=== PATIENT | male | born 1960 | race Caucasian/White ===

== ENCOUNTER 2023-04-07 14:28 | Day surgery (SDC) | payer BC ==
[2023-04-07] VITALS (38 sets, daily range): BP systolic 84–162; BP diastolic 49–101; PULSE 59–110; RESP 8–22; TEMP 97.3–97.5; O2SAT 95–100
[~2023-04-07] VITALS: Ht 167.6 cm; Wt 74.0 kg
--- NOTE | 2023-04-07 14:12 | NUR ---
PT ADMITTED FROM [facility] VIA AMBULANCE ON VENT. PT W/TRACH AND UNABLE TO ANSWER QUESTIONS, H&P FROM [facility] W/ VERY LITTLE INFORMATION AND VERY LITTLE HISTORY, PTS WAS ONLY ABLE TO ANSWER A FEW QUESTIONS. Addendum: 04/07/23 at 1816 by Qian Casas RN Amended: Links added.
[~2023-04-07 14:28] MED LIST: ATR0.5NEB NEB; CLON1PAT14 TOP; FAMO20TA8 GT; GABA-530 GT; GABA300S3 GT; HYDR-3965 GT; HYDR-3965 PO; INSU100I75 SQ; INSU100V49 SQ; IPRA3AMP31 NEB; LORA-269 PO; LORA2VIA30 IVP; MELA2.5T16 GT; METH-348 GT; METH20CP12 GT; METO100T14 GT; NYST15CR36 TOP; OLAN2.5T3 GT; OLAN5TAB75 GT; REGLAN IV; [UNRECOGNIZED DRUG - CODE] SQ; hydrALAZINE 20mg/ml inj. IV PRN; labetalol 20mg/4ml (5mg/ml) syringe IV PRN; morphine 2 MG/ML inj. syringe IV PRN; morphine 4 MG/ML inj SYRINge IV PRN; ondansetron/PF 4mg/2ml inj IV PRN; ringers solution, lacted 1,000 ML IV SCH
[2023-04-07] MEDS ORDERED: fentaNYL/PF 50MCG/1 ML 2ML syringe ONE (14:30)
[2023-04-07] MEDS ORDERED: MIDAZolam 1 MG/ML 5ML VIAL ONE (14:30)
[2023-04-07] MEDS ORDERED: rocuronium 10mg/ml inj IV ONE (14:34)
[2023-04-07] MEDS ORDERED: sevoflurane 250ml liquid IH ONE (14:39)
[2023-04-07] MEDS ORDERED: PHENYLephrine 10mg/ml 5ml injection IV ONE (14:39)
[2023-04-07] MEDS ORDERED: ondansetron/PF 4mg/2ml inj ONE (14:50)
[2023-04-07] MEDS ORDERED: dexamethasone sod phosphate 4mg/ml inj. ONE (14:50)
--- NOTE | 2023-04-07 15:08 | NUR ---
Received from OR via [facility], accompanied by Anesthesiologist DR KENDRICK and report given by Anesthesiologist AND PLAYERS CLUB REPRESENTATIVE. PT SEDATED ON VENT, NO S/S OF DISTRESS/DISCOMFORT NOTED. PEG TUBE PLACEMENT W/NO DRSG OR DRAINAGE. Addendum: 04/07/23 at 1607 by Qian Casas RN Amended: Links added.
--- NOTE | 2023-04-07 18:40 | NUR ---
PT REPOSITIONED AFTER MORPHINE GIVEN APPEARS MUCH MORE COMFORTABLE, CHAIM CARE PROVIDED, SCROTAL AREA AND INNER THIGHS, SACRUM EXCORIATED. AWAITING [facility] TO TAKE PT BACK TO [facility]. Addendum: 04/07/23 at 1843 by Qian Casas RN Amended: Links added.
--- NOTE | 2023-04-07 19:43 | NUR ---
[facility] HERE, PT TRANSFERRED TO [facility], RT HERE FROM [facility] TO ASSIST W/TRANSFER. PT D/CD TO [facility] VIA GURNEY/AMBULANCE. REPORT WAS CALLED TO SAM. Addendum: 04/07/23 at 1957 by Qian Casas RN Amended: Links added.
[2023-04-08] MEDS ORDERED: famotidine 20mg tablet PO ONE (05:30)
[2023-04-12] MEDS ORDERED: ringers solution, lacted 1,000 ML IV SCH (05:00)
[2023-04-12] MEDS ORDERED: albuterol 2.5 MG/3 ML nebule NEB ONE (05:30)
[2023-04-12] MEDS ORDERED: DOCUMENT DATE & TIME OF BETA-BLOCKER PO ONE (05:30)
== END 2023-04-07 19:43 ==
LOC: OR 14:28
PROVIDERS: ATTEND Internal Medicine Gastroenterology
DX: R13.10 Dysphagia, unspecified (principal); I10 Essential (primary) hypertension; E11.9 Type 2 diabetes mellitus without complications; F41.9 Anxiety disorder, unspecified; K21.9 Gastro-esophageal reflux disease without esophagitis; E66.9 Obesity, unspecified; I25.2 Old myocardial infarction; Z68.26 Body mass index [BMI] 26.0-26.9, adult
CPT/HCPCS: 43246; 82948; 94002; B4087; J1100; J2250; J2270; J2370; J2405; J3010; J3490; J7120; Z7506; Z7512; 94760; A4618

== ENCOUNTER 2023-04-11 18:12 | Emergency (ER) | payer BC ==
[~2023-04-11] VITALS: Ht 177.8 cm; Wt 77.0 kg
[2023-04-11 17:54] VITALS: PULSE 95; RESP 15; O2SAT 93
[~2023-04-11 18:12] MED LIST changes: -GABA-530 GT; -HYDR-3965 PO; -IPRA3AMP31 NEB; -LORA-269 PO; -METH20CP12 GT; -OLAN2.5T3 GT; -REGLAN IV; -hydrALAZINE 20mg/ml inj. IV PRN; -labetalol 20mg/4ml (5mg/ml) syringe IV PRN; -morphine 2 MG/ML inj. syringe IV PRN; -morphine 4 MG/ML inj SYRINge IV PRN; -ondansetron/PF 4mg/2ml inj IV PRN; -ringers solution, lacted 1,000 ML IV SCH
[2023-04-11 19:01] VITALS: BP 137/86; PULSE 100; RESP 16; O2SAT 98
[2023-04-11 20:45] VITALS: BP 106/65; PULSE 120; RESP 22; O2SAT 95
[2023-04-11 21:00] VITALS: BP 129/86; PULSE 111; RESP 20; TEMP 99.1; O2SAT 95
[2023-04-11] MEDS ORDERED: diatrozoate meglu/diatrozoate sod (37% iodine) 120ML oral solution PO ONE (21:00)
[2023-04-11] MEDS ORDERED: diatr meglu/diatrizoate 30ml oral sol.-(3 dose) bottle ONE (21:08)
[2023-04-11] MEDS ORDERED: diatr meglu/diatrizoate 30ml oral sol.-(3 dose) bottle PO ONE (21:10)
== END 2023-04-11 22:55 ==
LOC: ER 18:13
DX: K94.20 Gastrostomy complication, unspecified (principal); Z79.899 Other long term (current) drug therapy
CPT/HCPCS: 31500; 43762; 74019; 99285; B4087; Q9963; 43753; 94002; 94760; A6213

== ENCOUNTER 2023-04-12 17:50 | Inpatient (IN) | payer BC ==
[~2023-04-12] VITALS: Ht 175.3 cm; Wt 77.0 kg
[2023-04-12 19:45] VITALS: BP 169/107; PULSE 113; RESP 19
[2023-04-12 21:39] VITALS: BP 155/101; PULSE 113; RESP 20; O2SAT 95
[2023-04-12 22:58] VITALS: BP 160/102; PULSE 115; RESP 16; O2SAT 95
[2023-04-12] MEDS ORDERED: diatrozoate meglu/diatrozoate sod (37% iodine) 120ML oral solution RC ONE (23:30)
[2023-04-12] MEDS ORDERED: diatr meglu/diatrizoate 30ml oral sol.-(3 dose) bottle PO ONE (23:35)
[2023-04-13] VITALS (15 sets, daily range): BP systolic 96–177; BP diastolic 60–97; PULSE 87–124; RESP 13–25; TEMP 97.8; O2SAT 92–100
[2023-04-13] MEDS ORDERED: LORazepam 2 mg/ml vial ONE ×2 (00:42→00:43)
[2023-04-13] MEDS ORDERED: levetiracetam inj 1,000 MG in normal saline 100ml IV soln 90 ML IV STA (00:47)
[2023-04-13] MEDS ORDERED: levetiracetam inj 1,000 MG in normal saline 100ml IV soln 90 ML IV ONE (00:50)
[2023-04-13] MEDS ORDERED: levetiracetam inj 1,000 MG in normal saline 100ml IV soln 100 ML IV STA (00:57)
[2023-04-13] MEDS ORDERED: normal saline 1000ML IV soln IVB ONE (01:10)
[2023-04-13 01:56] LABS: APTT 22 SECONDS (22-32); INR 1.1 INR; PROTHROMBIN TIME 11.7 SECONDS (9.0-12.0)
[2023-04-13 01:58] LABS: ALANINE AMINOTRANSFERASE 22 U/L (12-78); ALBUMIN 2.8 G/DL (3.4-5.0); ALBUMIN/GLOBULIN RATIO 0.8 (1.1-1.5); ALKALINE PHOSPHATASE 98 IU/L (46-116); ANION GAP 6 (8-16); ASPARTATE AMINO TRANSFERASE 18 U/L (10-37); BILIRUBIN,TOTAL 0.4 MG/DL (0.1-1.0); BLOOD UREA NITROGEN 8 MG/DL (7-18); BUN/CREATININE RATIO 13.3 (10.0-20.0); CALCIUM 8.9 MG/DL (8.5-10.1); CHLORIDE 102 MMOL/L (99-107); GLUCOSE 163 MG/DL (70-104); SODIUM 138 MMOL/L (135-145); TOTAL CARBON DIOXIDE 29.6 MMOL/L (24-32); TOTAL PROTEIN 6.2 G/DL (6.4-8.2); eCRCL 126 ML/MIN; eGFR > 90 ML/MIN
[2023-04-13 02:00] LABS: C-REACTIVE PROTEIN 4.19 MG/DL (0.0-0.5); ETHANOL < 10 MG/DL (<10); PHOSPHORUS 3.5 MG/DL (2.3-4.5)
[2023-04-13 02:51] LABS: BASOPHILS # (AUTO) 0.1 X10'3 (0-0.2); BASOPHILS % (AUTO) 1.1 % (0-1); EOSINOPHILS # (AUTO) 0.2 X10'3 (0-0.9); EOSINOPHILS % (AUTO) 2.2 % (0-6); HEMATOCRIT 34.4 % (42.0-52.0); LYMPHOCYTES # (AUTO) 1.6 X10'3 (1.1-4.8); LYMPHOCYTES % (AUTO) 15.7 % (21-51); MEAN CORPUSCULAR HEMOGLOBIN 27.1 PG (27.0-31.0); MEAN CORPUSCULAR HGB CONC 32.1 g/dL (33.0-36.5); MEAN CORPUSCULAR VOLUME 84.4 FL (78-98); MEAN PLATELET VOLUME 8.2 FL (7.4-10.4); MONOCYTES # (AUTO) 1.1 X10'3 (0-0.9); MONOCYTES % (AUTO) 10.5 % (2-12); NEUTROPHILS # (AUTO) 7.3 X10'3 (1.8-7.7); NEUTROPHILS % (AUTO) 70.5 % (42-75); PLATELET COUNT 367 X10'3 (140-440); RED BLOOD COUNT 4.08 X10'6 (4.70-6.10); RED CELL DISTRIBUTION WIDTH 16.4 % (11.5-14.5); WHITE BLOOD COUNT 10.3 X10'3 (4.5-11.0)
[2023-04-13 03:40] LABS: ABG BASE EXCESS 0.3 mmol/L (-2.0-2.0); ABG HCO3 24.2 mmol/L (22.0-26.0); ABG OXYGEN SATURATION 96.5 % (94-97); ABG PCO2 (T) 36.8 mmHg (35.0-48.0); ABG PH (T) 7.438 (7.340-7.440); ABG PO2 (T) 83.9 mmHg (75.0-100.0); FCOHb 0.3 % (0.0-3.9); FHHb 3.5 % (0.0-5.0); FMetHb 0.1 % (0.0-1.5); FO2Hb 96.1 % (94-97); MODE ac vc; PATIENT TEMPERATURE 37.1; PEEP 5 cm H2O; RESPIRATORY RATE 12 b/min; TIDAL VOLUME 500 mL
[2023-04-13 03:42] LABS: BILIRUBIN,URINE NEGATIVE (Neg); CLARITY,URINE CLEAR (Clear); COLOR,URINE YELLOW (Yellow); GLUCOSE, URINE 100 mg/dl (Neg); KETONES,URINE NEGATIVE (Neg); LEUKOCYTE ESTERASE ,URINE NEGATIVE (Neg); NITRITES, URINE NEGATIVE (Neg); OCCULT BLOOD,URINE NEGATIVE (Neg); PH,URINE 7.5 (4.8-8.0); PROTEIN,URINE TRACE mg/dl (Neg)
[2023-04-13 03:46] LABS: UA COLLECTION TYPE CLN CATCH MIDSTREAM
[2023-04-13 03:52] LABS: RBC,URINE 0-2 /HPF (0-2); WBC,URINE 0-4 /HPF (0-4)
[2023-04-13 03:53] LABS: BACTERIA,URINE FEW /HPF (Neg); HYALINE CASTS 0-3 /LPF (NEGATIVE); SQUAMOUS EPITHELIAL CELL,UR FEW /LPF (FEW); TRANSITIONAL EPI CELLS,URINE FEW /HPF
[2023-04-13 03:57] LABS: URINE AMPHETAMINE SCREEN NEGATIVE (Neg); URINE BARBITUATE SCREEN NEGATIVE (Neg); URINE BENZODIAZEPINES SCREEN POSITIVE (Neg); URINE CANNABINOID SCREEN NEGATIVE (Neg); URINE COCAINE SCREEN NEGATIVE (Neg); URINE METHADONE SCREEN NEGATIVE (Neg); URINE OPIATE SCREEN NEGATIVE (Neg); URINE PHENCYCLIDINE SCREEN NEGATIVE (Neg)
[2023-04-13] MEDS ORDERED: CefTRIAXone 2gm/D5W 50ml BAG 50 ML IV ONE (04:30)
[2023-04-13] MEDS ORDERED: normal saline 1000ML IV soln IV ONE (04:30)
[2023-04-13] MEDS ORDERED: acetaminophen 650mg rectal suppository RC ONE (04:30)
[2023-04-13] MEDS ORDERED: propofol 1000mg/100ml bottle 100 ML IV ONE (04:30)
[2023-04-13] MEDS ORDERED: acetaminophen 325mg tablet PO PRN ×2 (04:35)
[2023-04-13] MEDS ORDERED: magnesium hydroxide 30ml (MOM) UD suspension PO PRN (04:35)
[2023-04-13] MEDS ORDERED: LIDOcaine 2% 10ml TOPICAL JELLY (Urojet) TP ONE (04:35)
[2023-04-13] MEDS ORDERED: ondansetron/PF 4mg/2ml inj IV PRN (04:35)
[2023-04-13] MEDS ORDERED: VANCOMYCIN 1,500MG in normal saline IV soln 300 ML IV ONE (04:40)
[2023-04-13] MEDS ORDERED: LidoCAINE 2% Topical Jelly 11mL syringe TOP ONE (04:50)
--- NOTE | 2023-04-13 08:53 | NUR ---
DR. REBOLLAR AT BEDSIDE. ORDERS RECIEVED AND INITIATED. PLAN TO DC TO [facility] TODAY.
[2023-04-13] MEDS ORDERED: gabapentin 300mg capsule PO SCH (09:24)
--- NOTE | 2023-04-13 09:32 | NUR ---
REPOSITIONED PT, PUT ON GOWN, NEW CHUX, DRAW SHEET. SUCTIONED SECRETIONS FROM MOUTH AND TRACH.
--- NOTE | 2023-04-13 09:36 | NUR ---
SENT RESPIRATORY A MESSAGE THAT SAT IT 89% AFTER AIRWAY SUCTIONED AND TRACH.
--- NOTE | 2023-04-13 10:05 | NUR ---
ORDERS TO DC ANTIBIOTICS BY DR. REBOLLAR. WILL IMPLEMENT ORDERS.
--- NOTE | 2023-04-13 10:51 | NUR ---
CALLED NURSING RN ADMISSION, SHE WILL CLARIFY WITH SHELIA TO PUT IN ORDERS AND TRANSFER STATUS TO [facility]. SHE WILL CALL BACK.
--- NOTE | 2023-04-13 11:38 | NUR ---
RT AT BEDSIDE. PT TITRATED TO 45% FIO2. SPO2 98%.
--- NOTE | 2023-04-13 12:48 | NUR ---
AT BEDSIDE. UPDATED ON PLAN OF CARE.
--- NOTE | 2023-04-13 13:25 | NUR ---
PT AT BEDSIDE, UPDATED ON PLAN OF CARE.
--- NOTE | 2023-04-13 13:39 | NUR ---
CALLED NURSING AGRICULTURAL INSPECTOR, CHRISTY SAID SHE WILL CALL [facility]. PT AT BEDSIDE.
--- NOTE | 2023-04-13 13:53 | NUR ---
RT AT BEDSIDE. TITRATED TO 40 FIO2. SPO2 96%.
--- NOTE | 2023-04-13 17:34 | NUR ---
ATTEMPTED TO CALL [facility] FOR STATUS ON PT'S RETURN TO THEIR FACILITY. PHONE MSG STATED THAT THE CALL COULD NOT BE COMPLETED AT THIS TIME, TRY AGAIN LATER. MULTIPLE CALLS WERE MADE, UNABLE TO GET THROUGH TO [facility].
--- NOTE | 2023-04-13 18:13 | NUR ---
SPOKE WITH NASIM ZAIDI RN REGARDING TRANSFER ORDERS. NO NEW UPDATES AT THIS TIME.
[2023-04-13] MEDS: morphine 4 MG/ML inj SYRINge IV PRN (18:21)
--- NOTE | 2023-04-13 21:45 | NUR ---
Admitted from ER. Arrived on [facility], transferred to bed with no issues. placed on monitor. notified Dr. Lemons of pt's arrival, he will round in an hour or so and see the pt.
[2023-04-13] MEDS: gabapentin 300mg capsule GT SCH (22:29)
--- NOTE | 2023-04-13 22:56 | NUR ---
Attempted to call pt's spouse Cary using the number on the face sheet, no answer. Unable to complete some of admit work like vaccination status.
[2023-04-14] VITALS (31 sets, daily range): BP systolic 87–186; BP diastolic 9–104; PULSE 68–134; RESP 12–31; O2SAT 93–99
[2023-04-14] MEDS: morphine 4 MG/ML inj SYRINge IV PRN (00:29)
[2023-04-14] MEDS ORDERED: levetiracetam inj 1,000 MG in normal saline 100ml IV soln 100 ML IV STA (01:15)
[2023-04-14] MEDS ORDERED: propofol 1000mg/100ml bottle 100 ML IV SCH (01:15)
--- NOTE | 2023-04-14 01:44 | NUR ---
Dr. Lemons did rounds. He would like him restarted on propofol and keppra Addendum: 04/14/23 at 0625 by Rafy Lemon RN All therapies, assessment data reviewed with including flaccidity of right arm and my not being sure if that's new or residual from previous brain injury.
[2023-04-14 02:58] LABS: BASOPHILS # (AUTO) 0.1 X10'3 (0-0.2); BASOPHILS % (AUTO) 0.7 % (0-1); EOSINOPHILS # (AUTO) 0.3 X10'3 (0-0.9); EOSINOPHILS % (AUTO) 3.3 % (0-6); HEMATOCRIT 30.5 % (42.0-52.0); HEMOGLOBIN 9.8 g/dl (14.0-17.9); LYMPHOCYTES # (AUTO) 1.8 X10'3 (1.1-4.8); MEAN CORPUSCULAR HEMOGLOBIN 27.3 PG (27.0-31.0); MEAN CORPUSCULAR VOLUME 85.3 FL (78-98); MEAN PLATELET VOLUME 7.7 FL (7.4-10.4); MONOCYTES # (AUTO) 0.9 X10'3 (0-0.9); MONOCYTES % (AUTO) 9.8 % (2-12); NEUTROPHILS # (AUTO) 6.4 X10'3 (1.8-7.7); NEUTROPHILS % (AUTO) 67.2 % (42-75); PLATELET COUNT 284 X10'3 (140-440); RED BLOOD COUNT 3.58 X10'6 (4.70-6.10); RED CELL DISTRIBUTION WIDTH 16.4 % (11.5-14.5); WHITE BLOOD COUNT 9.5 X10'3 (4.5-11.0)
[2023-04-14 03:05] LABS: GLUCOSE 108 MG/DL (70-104)
[2023-04-14 03:06] LABS: ALBUMIN 2.3 G/DL (3.4-5.0); ANION GAP 6 (8-16); BLOOD UREA NITROGEN 10 MG/DL (7-18); BUN/CREATININE RATIO 18.2 (10.0-20.0); CALCIUM 8.4 MG/DL (8.5-10.1); CHLORIDE 105 MMOL/L (99-107); CREATININE 0.55 MG/DL (0.60-1.10); MAGNESIUM 1.6 MG/DL (1.5-2.4); PHOSPHORUS 4.5 MG/DL (2.3-4.5); POTASSIUM 3.8 MMOL/L (3.5-5.1); SODIUM 139 MMOL/L (135-145); TOTAL CARBON DIOXIDE 28.4 MMOL/L (24-32); eCRCL 137 ML/MIN; eGFR > 90 ML/MIN
[2023-04-14 03:27] LABS: HEMOGLOBIN A1C 6.1 % (4.5-6.2)
--- NOTE | 2023-04-14 06:30 | NUR ---
Report received from Dave LIN via [facility].
--- NOTE | 2023-04-14 07:10 | NUR ---
Pt incontinent of liquid stool. Sacrum is protected by foam dsg. Inner thighs are excoriated from stool, which were cleansed well and lotions applied.
--- NOTE | 2023-04-14 07:20 | NUR ---
Pt had another loose stool and was given devendra care and repositioned.
--- NOTE | 2023-04-14 09:25 | NUR ---
Pt had a 3rd BM, and rectal tube was inserted; he tolerated it well.
[2023-04-14] MEDS: levetiracetam inj 1,000 MG in normal saline 100ml IV soln 100 ML IV SCH ×2 (09:58→20:29)
[2023-04-14] MEDS: gabapentin 300mg capsule GT SCH ×3 (09:58→20:29)
--- NOTE | 2023-04-14 11:10 | NUR ---
Pt had managed to use his feet pulling the rectal tube out. Pt was cleaned again. Rectal tube was not reinserted. Waiting for approval fro pt to return to [facility].
--- NOTE | 2023-04-14 13:51 | NUR ---
Pt's is at bedside visiting.
--- NOTE | 2023-04-14 15:03 | NUR ---
Noted pt with a low Geoffrey of 11. Per RN/PHOTOENGRAVING PRINTER skin assessment pt with irritation to his abdomen that is not a pressure wound. Pt with a trach and G-tube admit for G-tube reinsertion after it had fallen out. Pt currently not receiving any nutrition support with plans to transfer back to [facility] today. Will follow closely and provide full nutrition assessment with TF recommendations if pt does not get discharged. Addendum: 04/14/23 at [address] Amended: Links added.
--- NOTE | 2023-04-14 15:40 | NUR ---
Called [facility] to give report. A nurse hasn't been assigned yet. They will call back. Spouse remains at bedside. Pt is now more awake after a good rest. See VSs.
--- NOTE | 2023-04-14 15:54 | NUR ---
Report given to Radha LIN via [facility] at [facility]. Awaiting transport between now and 1700.
--- NOTE | 2023-04-14 18:29 | NUR ---
Patient in room ICU 2039. I have received report from Melinda LIN and had the opportunity to ask questions and assume patient care.
--- NOTE | 2023-04-14 18:31 | NUR ---
Report given to Flakito LIN via [facility].
--- NOTE | 2023-04-14 21:05 | NUR ---
AMS at bedside to cook pickled meat patient. Patient transferred with ambu-bag to transfer bed in stable condition. Will discharge patient from [facility].
== END 2023-04-14 21:00 | DRG 394 ==
LOC: ER 17:51 → ED HOLD 04-13 04:39 → ICU 2S 04-13 22:04
PROVIDERS: ADMIT Surgery Surgical Critical Care; ATTEND Surgery Surgical Critical Care
DX: K94.23 Gastrostomy malfunction (principal); G93.1 Anoxic brain damage, not elsewhere classified; G40.901 Epilepsy, unspecified, not intractable, with status epilepticus; I10 Essential (primary) hypertension; F03.90 Unspecified dementia, unspecified severity, without behavioral disturbance, psychotic disturbance, mood disturbance, and anxiety; Y83.8 Other surgical procedures as the cause of abnormal reaction of the patient, or of later complication, without mention of misadventure at the time of the procedure; Y82.8 Other medical devices associated with adverse incidents; I25.2 Old myocardial infarction; Z87.01 Personal history of pneumonia (recurrent); Y92.89 Other specified places as the place of occurrence of the external cause
CPT/HCPCS: 36415; 36600; 70450; 71045; 74018; 80048; 80053; 80305; 80320; 81001; 82140; 82803; 82948; 83036; 83605; 83735; 84100; 84145; 84484; 85018; 85025; 85610; 85730; 86140; 87081; 87502; 87503; 93005; 94002; 94003; 94760; 99285; A4623; A5200; A6213; A6258; C1758; G0378; J0696; J1953; J2060; J2270; J2405; J2704; J3490; J7030; J7040; Q9963

== ENCOUNTER 2023-04-17 11:57 | Emergency (ER) | payer BC ==
[~2023-04-17] VITALS: Ht 165.1 cm; Wt 77.0 kg
[2023-04-17 12:39] VITALS: BP 136/88; PULSE 96; RESP 15; O2SAT 99
[2023-04-17 15:03] LABS: HEMOGLOBIN 11.8 g/dl (14.0-17.9); LYMPHOCYTES # (AUTO) 1.5 X10'3 (1.1-4.8); RED BLOOD COUNT 4.33 X10'6 (4.70-6.10)
[2023-04-17 15:04] LABS: BASOPHILS # (AUTO) 0.1 X10'3 (0-0.2); BASOPHILS % (AUTO) 1.3 % (0-1); EOSINOPHILS # (AUTO) 0.2 X10'3 (0-0.9); EOSINOPHILS % (AUTO) 2.3 % (0-6); LYMPHOCYTES % (AUTO) 13.6 % (21-51); MEAN CORPUSCULAR HEMOGLOBIN 27.2 PG (27.0-31.0); MEAN CORPUSCULAR HGB CONC 32.6 g/dL (33.0-36.5); MEAN CORPUSCULAR VOLUME 83.2 FL (78-98); MEAN PLATELET VOLUME 8.4 FL (7.4-10.4); MONOCYTES # (AUTO) 0.7 X10'3 (0-0.9); MONOCYTES % (AUTO) 6.9 % (2-12); NEUTROPHILS # (AUTO) 8.1 X10'3 (1.8-7.7); NEUTROPHILS % (AUTO) 75.9 % (42-75); PLATELET COUNT 257 X10'3 (140-440); RED CELL DISTRIBUTION WIDTH 16.3 % (11.5-14.5); WHITE BLOOD COUNT 10.7 X10'3 (4.5-11.0)
[2023-04-17 15:18] LABS: ALANINE AMINOTRANSFERASE 23 U/L (12-78); ALBUMIN/GLOBULIN RATIO 0.8 (1.1-1.5); ALKALINE PHOSPHATASE 95 IU/L (46-116); ANION GAP 4 (8-16); ASPARTATE AMINO TRANSFERASE 17 U/L (10-37); BILIRUBIN,TOTAL 0.5 MG/DL (0.1-1.0); BLOOD UREA NITROGEN 10 MG/DL (7-18); BUN/CREATININE RATIO 19.6 (10.0-20.0); CALCIUM 9.3 MG/DL (8.5-10.1); CHLORIDE 102 MMOL/L (99-107); CREATININE 0.51 MG/DL (0.60-1.10); GLUCOSE 149 MG/DL (70-104); POTASSIUM 3.9 MMOL/L (3.5-5.1); SODIUM 138 MMOL/L (135-145); TOTAL CARBON DIOXIDE 31.8 MMOL/L (24-32); TOTAL PROTEIN 6.8 G/DL (6.4-8.2); eCRCL 129 ML/MIN; eGFR > 90 ML/MIN
[2023-04-17 15:25] VITALS: BP 152/101; PULSE 107; RESP 18; O2SAT 97
[2023-04-17 17:41] VITALS: BP 138/88; PULSE 109; RESP 18; O2SAT 98
[2023-04-17] MEDS ORDERED: POLY17PO10 PO (18:38)
[2023-04-17 19:08] VITALS: BP 141/96; PULSE 104; RESP 16; O2SAT 96
[2023-04-17] MEDS ORDERED: morphine 4 MG/ML inj SYRINge IV ONE (20:25)
[2023-04-17] MEDS ORDERED: LORazepam 2 mg/ml vial IV ONE (20:25)
[2023-04-17 21:23] VITALS: BP 104/75; PULSE 88; RESP 16; O2SAT 97
[2023-04-17] MEDS ORDERED: diatrozoate meglu/diatrozoate sod (37% iodine) 120ML oral solution PO ONE (21:55)
[2023-04-17] MEDS ORDERED: diatr meglu/diatrizoate 30ml oral sol.-(3 dose) bottle ONE (21:56)
[2023-04-17 22:36] VITALS: BP 122/92; PULSE 103; RESP 16; TEMP 98.3; O2SAT 98
[2023-04-21 18:33] LABS: GABAPENTIN, SERUM <1.0 ug/mL (4.0-16.0)
== END 2023-04-17 22:39 ==
LOC: ER 11:58
DX: K94.20 Gastrostomy complication, unspecified (principal)
CPT/HCPCS: 36415; 43762; 74019; 80053; 85025; 96374; 96375; 99285; B4087; J2060; J2270; Q9963; 94002; 94760

== ENCOUNTER 2023-04-18 11:04 | Observation (INO) | payer BC ==
[2023-04-18] VITALS (8 sets, daily range): BP systolic 140–180; BP diastolic 91–109; PULSE 109–123; RESP 15–31; O2SAT 97–99
[~2023-04-18] VITALS: Ht 175.3 cm; Wt 77.0 kg
[~2023-04-18 11:04] MED LIST changes: -LORA2VIA30 IVP; -METH-348 GT; -NYST15CR36 TOP; +POLY17PO10 PO; -[UNRECOGNIZED DRUG - CODE] SQ
[2023-04-18] MEDS ORDERED: acetaminophen 325mg tablet PO PRN ×3 (14:05→22:30)
[2023-04-18] MEDS ORDERED: ondansetron/PF 4mg/2ml inj IV PRN ×2 (14:05→22:30)
[2023-04-18] MEDS ORDERED: magnesium hydroxide 30ml (MOM) UD suspension PO PRN ×2 (14:05→22:30)
[2023-04-18] MEDS ORDERED: HYDROcodone/acetaminophen 10/325mg tab PO PRN (14:05)
[2023-04-18] MEDS ORDERED: magnesium 2GM in 50ml NS 50 ML IV PRN (14:05)
[2023-04-18] MEDS ORDERED: magnesium Cl slow-release 64mg tablet PO PRN (14:05)
[2023-04-18] MEDS ORDERED: mag hydrox/Alum hydrox/simeth 30ml oral suspension PO PRN (14:05)
[2023-04-18] MEDS ORDERED: magnesium 4gm in 100ml NS 100 ML IV PRN (14:05)
[2023-04-18] MEDS ORDERED: potassium Cl 40MEQ/1/2NS 520ml 520 ML IV PRN (14:05)
[2023-04-18] MEDS ORDERED: potassium Cl 20 mEq SR tablet PO PRN ×2 (14:05)
[2023-04-18] MEDS ORDERED: HYDROcodone/acetaminophen 5mg/325mg tablet PO PRN ×2 (14:05→22:25)
[2023-04-18] MEDS ORDERED: morphine 2 MG/ML inj. syringe IV PRN ×2 (14:05)
[2023-04-18 14:45] LABS: BASOPHILS # (AUTO) 0.1 X10'3 (0-0.2); BASOPHILS % (AUTO) 0.9 % (0-1); EOSINOPHILS # (AUTO) 0.1 X10'3 (0-0.9); EOSINOPHILS % (AUTO) 1.1 % (0-6); HEMATOCRIT 36.4 % (42.0-52.0); HEMOGLOBIN 11.9 g/dl (14.0-17.9); LYMPHOCYTES # (AUTO) 1.1 X10'3 (1.1-4.8); LYMPHOCYTES % (AUTO) 10.8 % (21-51); MEAN CORPUSCULAR HEMOGLOBIN 27.2 PG (27.0-31.0); MEAN CORPUSCULAR HGB CONC 32.7 g/dL (33.0-36.5); MEAN CORPUSCULAR VOLUME 83.1 FL (78-98); MEAN PLATELET VOLUME 7.5 FL (7.4-10.4); MONOCYTES # (AUTO) 0.6 X10'3 (0-0.9); MONOCYTES % (AUTO) 5.5 % (2-12); NEUTROPHILS # (AUTO) 8.5 X10'3 (1.8-7.7); NEUTROPHILS % (AUTO) 81.7 % (42-75); PLATELET COUNT 330 X10'3 (140-440); RED BLOOD COUNT 4.38 X10'6 (4.70-6.10); RED CELL DISTRIBUTION WIDTH 17.3 % (11.5-14.5); WHITE BLOOD COUNT 10.5 X10'3 (4.5-11.0)
[2023-04-18 15:00] LABS: APTT 25 SECONDS (22-32); INR 1.1 INR; PROTHROMBIN TIME 11.4 SECONDS (9.0-12.0)
[2023-04-18 15:04] LABS: ALANINE AMINOTRANSFERASE 26 U/L (12-78); ALBUMIN 3.3 G/DL (3.4-5.0); ALBUMIN/GLOBULIN RATIO 0.9 (1.1-1.5); ALKALINE PHOSPHATASE 105 IU/L (46-116); ANION GAP 9 (8-16); ASPARTATE AMINO TRANSFERASE 17 U/L (10-37); BILIRUBIN,TOTAL 0.4 MG/DL (0.1-1.0); BLOOD UREA NITROGEN 12 MG/DL (7-18); BUN/CREATININE RATIO 23.1 (10.0-20.0); CALCIUM 9.5 MG/DL (8.5-10.1); CHLORIDE 101 MMOL/L (99-107); CREATININE 0.52 MG/DL (0.60-1.10); GLUCOSE 155 MG/DL (70-104); SODIUM 141 MMOL/L (135-145); TOTAL CARBON DIOXIDE 30.9 MMOL/L (24-32); TOTAL PROTEIN 7.1 G/DL (6.4-8.2); eCRCL 145 ML/MIN; eGFR > 90 ML/MIN
[2023-04-18] MEDS ORDERED: ondansetron/PF 4mg/2ml inj IV ONE (19:20)
[2023-04-18] MEDS: morphine 2 MG/ML inj. syringe IV PRN (19:33)
[2023-04-18] MEDS ORDERED: K and/or MAG REPLACEMENT MC SCH (20:00)
[2023-04-18] MEDS ORDERED: docusate sod 100mg capsule PO SCH (20:00)
[2023-04-18] MEDS ORDERED: cloNIDine 0.1 MG/24 HOUR patch (7 day patch) TD SCH (22:25)
[2023-04-18] MEDS ORDERED: polyethylene glycol 3350 17gm powd pack PO PRN (22:25)
[2023-04-19] VITALS (12 sets, daily range): BP systolic 115–159; BP diastolic 74–106; PULSE 83–128; RESP 15–30; TEMP 99.3; O2SAT 96–99
[2023-04-19] MEDS ORDERED: ipratropium 0.5 MG/2.5ML nebule NEB SCH (02:00)
[2023-04-19] MEDS: ipratropium 0.5 MG/2.5ML nebule NEB SCH ×2 (02:29→09:14)
[2023-04-19 02:52] LABS: OXYGEN SATURATION (MIXED VEN) 67.8 % (60-80); PO2 MIXED VENOUS (TEMP COR) 36.7 mmHg (35-46)
[2023-04-19] MEDS: morphine 2 MG/ML inj. syringe IV PRN (04:16)
[2023-04-19] MEDS ORDERED: metoprolol tartrate 50mg tablet PEG SCH ×2 (08:00→20:00)
[2023-04-19] MEDS ORDERED: famotidine 20mg tablet PEG SCH ×2 (08:00→20:00)
[2023-04-19] MEDS ORDERED: gabapentin 300mg capsule GT SCH ×2 (08:00→21:00)
[2023-04-19] MEDS ORDERED: sodium chloride 0.45% 1,000 ML IV ONE (10:00)
[2023-04-19] MEDS ORDERED: insulin glargine (Lantus) pen - multi-dose SQ SCH (21:00)
[2023-04-19] MEDS ORDERED: Melatonin 3mg tablet PEG SCH (21:00)
[2023-04-19] MEDS ORDERED: OLANZapine 2.5MG tablet GT SCH (21:00)
[2023-04-20 10:07] VITALS: BP 147/88; PULSE 82; RESP 14; O2SAT 100
== END 2023-04-19 15:45 ==
LOC: ER 11:05 → UNDOADMIN 14:09 → ED HOLD 14:09 → INTOOBSV 22:39
PROVIDERS: ADMIT Internal Medicine; ATTEND Internal Medicine
DX: K94.23 Gastrostomy malfunction (principal); G93.1 Anoxic brain damage, not elsewhere classified; Z99.11 Dependence on respirator [ventilator] status; Z79.899 Other long term (current) drug therapy
CPT/HCPCS: 36415; 43762; 74018; 80053; 82810; 82948; 85025; 85610; 85730; 94640; 94760; 96361; 96374; 96375; 96376; 99284; B4087; G0378; J2270; J2405; J3490; 94002; 99285; A4340; A4623; A5200; A6213; A6449; A7015; A7521; J1815